=== PATIENT | male | born 1990 | race Hispanic/Latino ===

== ENCOUNTER 2017-01-19 17:12 | Emergency (ER) | payer OTHER ==
[~2017-01-19] VITALS: Ht 175.3 cm; Wt 86.2 kg
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
[2017-01-19] MEDS ORDERED: IBUPROFEN800 M1 PO (18:10)
[2017-01-19] MEDS ORDERED: CYCLOBENZAPRINE5 M2 PO (18:10)
[2017-01-19 18:15] VITALS: BP 124/74
== END 2017-01-19 18:15 ==
LOC: ERH 17:12
DX: S39.012A Strain of muscle, fascia and tendon of lower back, initial encounter (principal); V49.40XA Driver injured in collision with unspecified motor vehicles in traffic accident, initial encounter; Y92.488 Other paved roadways as the place of occurrence of the external cause